=== PATIENT | male | born 1990 | race Caucasian/White ===

== ENCOUNTER 2023-02-25 12:51 | Emergency (ER) | payer OTHER ==
[~2023-02-25] VITALS: Ht 182.9 cm; Wt 81.8 kg
[2023-02-25 12:52] VITALS: BP 118/57; PULSE 78; RESP 18; TEMP 98.3
[2023-02-25] MEDS ORDERED: DOXY-354 PO (13:54)
[2023-02-25] MEDS ORDERED: CEPH-558 PO (13:54)
[2023-02-25] MEDS ORDERED: DOXYCYCLINE HYCLATE 100 MG TABLET PO ONE (14:00)
[2023-02-25] MEDS ORDERED: CEPHALEXIN MONOHYDRATE 500 MG CAPSULE PO ONE (14:00)
== END 2023-02-25 14:06 | disposition home or self-care (01) ==
LOC: EMS 12:51
DX: L02.415 Cutaneous abscess of right lower limb (principal); F15.10 Other stimulant abuse, uncomplicated; F17.210 Nicotine dependence, cigarettes, uncomplicated
CPT/HCPCS: 99283